=== PATIENT | female | born 1985 | race Caucasian/White ===

== ENCOUNTER 2020-09-15 07:05 | Emergency (ER) | payer BC, MEDICAID, SELFPAY ==
--- NOTE | 2020-09-15 07:24 | ED_ITS ---
HPI - Animal Bite General Chief Complaint: Animal Bite Stated Complaint: DOG BITE Time Seen by Provider: 09/15/20 07:24 Source: patient Mode of arrival: ambulatory Limitations: no limitations History of Present Illness MD complaint: animal bite Onset (ago): minute(s) Animal: dog Description of animal: household pet Mechanism: bite Location - Extremities: left: elbow and forearm Pain description: sharp Context: animals fighting Associated symptoms: bleeding Related Data Patient tetanus UTD: No Home Medications Medication Instructions Recorded Confirmed clonidine HCl 0.1 mg tablet mg PO 09/13/20 09/14/20 oxcarbazepine 150 mg tablet 300 mg PO BID 09/13/20 09/14/20 Previous Rx's Medication Instructions Recorded dextroamphetamine-amphetamine ER 20 mg PO DAILY 28 Days #28 cap 09/12/20 20 mg 24hr capsule,extend release lorazepam 0.5 mg tablet 0.5 mg PO TID PRN 28 Days #84 tab 09/12/20 sumatriptan succinate 100 mg tablet 100 mg PO ONCE PRN 30 Days #30 tab 09/12/20 tramadol 50 mg tablet 50 mg PO TID PRN 28 Days #84 tab 09/12/20 amoxicillin 500 mg capsule 500 mg PO Q8H 7 Days #21 cap 09/13/20 oxycodone-acetaminophen 5 mg-325 1 tab PO Q8H PRN 5 Days #5 tab 09/13/20 mg tablet Saccharomyces boulardii 250 mg 250 mg PO BID 30 Days #60 cap 09/14/20 capsule amoxicillin-pot clavulanate 1 tab PO BID 7 Days #14 tab 09/15/20 [Augmentin] cyclobenzaprine 10 mg PO TID PRN #14 tab 09/15/20 ibuprofen 600 mg PO Q6H PRN #30 tab 09/15/20 Allergies Allergy/AdvReac Type Severity Reaction Status Date / Time No Known Allergies Allergy Verified 09/14/20 05:48 Review of Systems Review of Systems: Constitutional : No Fever, No Chills ENT/Mouth : No Ear Pain, No Hoarseness, No sore throat Eyes: No Eye Pain, No Swelling, No Redness, No Foreign Body Cardiovascular : No Chest Pain, No SOB Respiratory : No Cough, No Dyspnea Gastrointestinal : No Nausea, No Vomiting, No Diarrhea, No abdominal Pain Genitourinary : No Dysuria, No Hematuria Musculoskeletal : positive joint pain, No Myalgias, No Joint Swelling Skin : pos Skin lacerations, No rash Neuro : No Weakness, No Numbness, No Loss of Consciousness, No Dizziness, No Headache All other systems reviewed and are negative [facility] Past Medical History Attestation statement: The following information was validated with the patient. Medical History ADHD (attention deficit hyperactivity disorder) Anxiety Epilepsy Migraine Surgical History History of cholecystectomy History of salpingectomy History of wisdom tooth extraction Family History Family History Father No problems noted. Mother Cancer Hypertension Social History Social History Smoking Status: Never smoker Physical Exam Vital Signs: Vital Signs: Last Vital Signs Temp 98.9 F 09/15/20 07:25 Pulse 91 09/15/20 07:25 Resp 16 09/15/20 07:25 BP 160/82 H 09/15/20 07:25 Pulse Ox 99 09/15/20 07:25 Body Mass Index 20.7 Appearance: Alert. Oriented X3. Anxious and tearful, no acute distress Eyes: Pupils equal, round and reactive to light. ENT: Pharynx normal. Neck: Normal inspection. Neck supple. CVS: Normal heart rate and rhythm. Pulses normal. Respiratory: No respiratory distress. Breath sounds normal. Abdomen: Soft and nontender. Skin: Skin warm and dry. Normal skin color. Normal skin turgor. Extremities: No lower extremity edema. L forearm contusions on posterior aspect x 3, 3 puncture wounds superficial and less than 0.5cm one 4cm distal to AC fabricio, the other posterior aspect of forearm x 2, L heel superficial abrasion noted as well, R hand dorsum of thumb superficial scrape noted Neuro: Oriented X 3. No motor deficit. No sensory deficit. MDM - Animal Bite MDM Narrative Medical decision making narrative: 34 yo female s/p dog bite at home by her dog, no concern for rabies, will need tetanus, augmentin, pain control - xray for FB, NV intact anticipate DC home Discharge Plan Discharge Clinical Impression: Dog bite Qualifiers: Encounter type: initial encounter Qualified Code(s): W54.0XXA - Bitten by dog, initial encounter Patient Disposition: Home, Self-Care Instructions: Animal Bite (ED), Puncture Wound (ED) Additional Instructions: return to ED for any worsening symptoms or concerns Prescriptions: New cyclobenzaprine 10 mg tablet 10 mg PO TID PRN (Reason: muscle spasm) Qty: 14 RF: 0 ibuprofen 600 mg tablet 600 mg PO Q6H PRN (Reason: pain) Qty: 30 RF: 0 amoxicillin-pot clavulanate [Augmentin] 875-125 mg tablet 1 tab PO BID 7 Days Qty: 14 RF: 0 No Action dextroamphetamine-amphetamine 20 mg capsule,extended release 24hr 20 mg PO DAILY 28 Days Qty: 28 RF: 0 lorazepam 0.5 mg tablet 0.5 mg PO TID PRN (Reason: anxiety) 28 Days Qty: 84 RF: 0 sumatriptan succinate 100 mg tablet 100 mg PO ONCE PRN (Reason: migraine headache) 30 Days Qty: 30 RF: 1 tramadol 50 mg tablet 50 mg PO TID PRN (Reason: pain) 28 Days Qty: 84 RF: 0 clonidine HCl 0.1 mg tablet PO RF: 0 oxcarbazepine 150 mg tablet 300 mg PO BID RF: 0 oxycodone-acetaminophen 5-325 mg tablet 1 tab PO Q8H PRN (Reason: pain) 5 Days Qty: 5 RF: 0 amoxicillin 500 mg capsule 500 mg PO Q8H 7 Days Qty: 21 RF: 0 Saccharomyces boulardii [Daily Probiotic (S. boulardii)] 250 mg capsule 250 mg PO BID 30 Days Qty: 60 RF: 5 Referrals: Mirza Sher MD [Primary Care Provider] - 2 days (if not better) Stand Alone Forms: Work/School Release
--- NOTE | 2020-09-15 07:24 | XR_ITS ---
EXAMINATION: XR FOREARM, LEFT CLINICAL INFORMATION: Pain status post dog bite. COMPARISON: None TECHNIQUE: AP and lateral views of the left forearm were obtained. FINDINGS: There is no acute fracture or dislocation. The joint spaces are unremarkable. The soft tissues are unremarkable. There is no radiopaque foreign body. XR/XR forearm LT 2V IMPRESSION: Unremarkable left forearm.
[2020-09-15 07:25] VITALS: BP 160/82; PULSE 91; RESP 16; TEMP 37.2; O2SAT 99; BMI 20.7
[2020-09-15] MEDS: Amoxicillin/Potassium Clav 875 MG TABLET PO (07:39)
[2020-09-15] MEDS: oxyCODONE HCl Immed Release 5 MG TABLET PO (07:39)
--- NOTE | 2020-09-15 08:42 | PC.NURSE ---
ANIMAL BITE REPORT FAXED TO [facility] [phone]
== END 2020-09-15 08:43 | disposition home or self-care (01) ==
PROVIDERS: Emergency Provider Emergency Medicine; PCP Internal Medicine
DX: S50.872A Other superficial bite of left forearm, initial encounter (principal); S60.812A Abrasion of left wrist, initial encounter; M79.632 Pain in left forearm; W54.0XXA Bitten by dog, initial encounter; Y93.9 Activity, unspecified; Y92.009 Unspecified place in unspecified non-institutional (private) residence as the place of occurrence of the external cause; Y99.9 Unspecified external cause status; Z79.899 Other long term (current) drug therapy; Z23 Encounter for immunization
CPT/HCPCS: 73090; 90471; 90715; 99283; 99284